=== PATIENT | female | born 1970 | race Caucasian/White ===

== ENCOUNTER → 2020-12-20 | Outpatient (CLI) | payer OTHER ==
[~2020-12-20] MED LIST: ALLEGRA ALLERG180 MG PO; CALCIUM 600 +1 EA11 PO; CELEXA20 MG PO; FLEXERIL 10 MG10 MG PO; FLONASE 0.05% N16 GM; GLUCOPHAGE XR500 MG PO; LASIX40 MG PO; LIPITOR TAB 1010 MG PO; METOPROLOL SUCC50 MG PO; MOBIC7.5 MG PO; ROBAXIN500 MG PO; SYMBICORT 80-41 INHA INH; SYNTHROID125 MCG PO; TOPROL XL25 MG PO; VISTARIL25 MG PO; VITAMIN D 11000 UNIT PO; VITAMIN D250000 UNIT PO
== END ==
LOC: KOH-I 11:32
DX: M25.552 Pain in left hip (principal); M51.36 Other intervertebral disc degeneration, lumbar region; M16.12 Unilateral primary osteoarthritis, left hip
CPT/HCPCS: 72110; 72220; 73502

== ENCOUNTER → 2021-11-14 | Outpatient (CLI) | payer OTHER | LOC: EXRD 13:09 → KOH-I 14:30 → EXRD 14:30 | DX: I73.9 Peripheral vascular disease, unspecified (principal) | CPT/HCPCS: 93925; 93970 ==

== ENCOUNTER → 2022-03-16 | Outpatient (CLI) | payer OTHER | LOC: KOH-I 09:02 | DX: M25.562 Pain in left knee (principal); R60.0 Localized edema; M17.12 Unilateral primary osteoarthritis, left knee | CPT/HCPCS: 73562; 73590 ==

== ENCOUNTER → 2022-07-13 | Outpatient (CLI) | payer OTHER | LOC: KOH-I 08:55 | DX: R74.8 Abnormal levels of other serum enzymes (principal); K76.0 Fatty (change of) liver, not elsewhere classified; Z90.49 Acquired absence of other specified parts of digestive tract | CPT/HCPCS: 76700 ==